=== PATIENT | female | born 1990 | race African-American/Black ===

== ENCOUNTER 2017-11-28 02:20 | Emergency (ER) | payer OTHER ==
[~2017-11-28] VITALS: Ht 175.3 cm; Wt 65.0 kg
[~2017-11-28 02:20] MED LIST: AMOXICILLIN500 MG PO; PERCOCET 5/325M1 TAB PO
[2017-11-28] MEDS ORDERED: MOTRIN800 MG PO (05:20)
[2017-11-28] MEDS ORDERED: ORPHENADRINE100 MG PO (05:20)
[2017-11-28 05:27] VITALS: BP 103/62
== END 2017-11-28 05:45 | disposition home or self-care (01) ==
LOC: ED 02:20
DX: M54.5 Low back pain (principal)

== ENCOUNTER 2018-09-02 04:48 | Emergency (ER) | payer OTHER ==
[~2018-09-02] VITALS: Ht 175.3 cm; Wt 68.1 kg
[~2018-09-02 04:48] MED LIST changes: +MOTRIN800 MG PO; +ORPHENADRINE100 MG PO
[2018-09-02] MEDS ORDERED: IBUPROFEN600 MG PO (05:02)
[2018-09-02] MEDS ORDERED: AMOXICILLIN500 MG PO (05:02)
[2018-09-02 05:10] VITALS: BP 125/77
== END 2018-09-02 05:14 | disposition home or self-care (01) ==
LOC: ED 04:48
DX: M84.48XA Pathological fracture, other site, initial encounter for fracture (principal); K08.409 Partial loss of teeth, unspecified cause, unspecified class

== ENCOUNTER 2019-03-22 | Emergency (ER) | payer OTHER ==
[~2019-03-22] MED LIST changes: +IBUPROFEN600 MG PO
[2019-03-22] MEDS ORDERED: TYLENOL500 MG PO (13:35)
== END 2019-03-22 14:34 | disposition home or self-care (01) ==
DX: M54.2 Cervicalgia (principal); Z33.1 Pregnant state, incidental

== ENCOUNTER 2019-04-10 | Emergency (ER) | payer OTHER ==
[~2019-04-10] MED LIST changes: +TYLENOL500 MG PO
[2019-04-10 13:24] LABS: HEMOGLOBIN 11.3 g/dl (12.0-16.0); IMMATURE GRANULOCYTES 0.2 % (0.0-5.0); MEAN CELL VOLUME 86.7 fL CALC (80.0-100.0); MEAN CORPUSCULAR HGB 28.8 pG CALC (26.0-32.0); MEAN CORPUSCULAR HGB CONC 33.2 g/L CALC (32.0-36.0); NEUT# 2.76 thou/uL (2.00-7.15); RED BLOOD COUNT 3.92 mill/uL (4.20-5.60); RED CELL DISTRI WIDTH 12.6 % (11.5-15.5)
[2019-04-10 13:39] LABS: ALBUMIN 4.4 g/dL (3.2-5.0); ALKALINE PHOSPHATASE 43 u/l (38-126); ANION GAP 14 (6-22 (CALC)); BILIRUBIN, TOTAL 0.5 mg/dL (0.0-1.4); BUN 10 mg/dL (7-17); BUN/CREATININE RATIO 20 (12-20 (CALC)); CARBON DIOXIDE 22 mmol/l (22-30); CHLORIDE 101 mmol/l (95-108); CREATININE 0.5 mg/dL (0.5-1.0); GFR > 60 ML/MIN (>=60 (CALC)); GFR FOR AFR.AMER. > 60 ML/MIN (>=60 (CALC)); POTASSIUM 3.8 mmol/l (3.5-5.1); SGOT/AST 23 u/l (14-36); SODIUM 134 mmol/l (137-146); TOTAL PROTEIN 7.8 g/dL (6.3-8.2)
[2019-04-10 14:20] LABS: BETA-HCG, QUANT(RESULT NUMBER) 107060 mIU/mL
[2019-04-10] MEDS ORDERED: PHENERGAN25 MG/TAB PO (15:02)
== END 2019-04-10 15:25 | disposition home or self-care (01) ==
PROVIDERS: Family Medicine
DX: K52.9 Noninfective gastroenteritis and colitis, unspecified (principal)

== ENCOUNTER 2019-05-08 15:14 | Emergency (ER) | payer OTHER ==
[~2019-05-08 15:14] MED LIST changes: +PHENERGAN25 MG/TAB PO
[2019-05-08] MEDS ORDERED: DICLEGIS1 TAB (15:26)
[2019-05-08] MEDS ORDERED: AMOXICILLIN875 MG PO (16:10)
[2019-05-08 16:15] VITALS: BP 118/73
== END 2019-05-08 16:15 | disposition home or self-care (01) ==
LOC: ED 15:14
DX: J02.9 Acute pharyngitis, unspecified (principal); R05 Cough

== ENCOUNTER 2020-07-30 09:50 | Emergency (ER) | payer OTHER ==
[~2020-07-30] VITALS: Ht 175.3 cm; Wt 72.2 kg
[~2020-07-30 09:50] MED LIST changes: +AMOXICILLIN875 MG PO; +DICLEGIS1 TAB
[2020-07-30 12:18] VITALS: BP 124/62
== END 2020-07-30 12:18 | disposition home or self-care (01) | DRG 552 ==
LOC: ED 09:50
DX: S16.1XXA Strain of muscle, fascia and tendon at neck level, initial encounter (principal); S46.911A Strain of unspecified muscle, fascia and tendon at shoulder and upper arm level, right arm, initial encounter; R07.81 Pleurodynia; V43.54XA Car driver injured in collision with van in traffic accident, initial encounter

== ENCOUNTER 2022-02-04 08:43 | Emergency (ER) | payer OTHER ==
[~2022-02-04] VITALS: Ht 175.3 cm; Wt 74.1 kg
[2022-02-04] MEDS ORDERED: CHERATUSSIN PO (09:24)
[2022-02-04] MEDS ORDERED: ZPAK PO (09:25)
[2022-02-04 09:27] VITALS: BP 116/68
== END 2022-02-04 09:36 | disposition home or self-care (01) ==
LOC: ED 08:43
DX: J06.9 Acute upper respiratory infection, unspecified (principal); Z20.822 Contact with and (suspected) exposure to COVID-19

== ENCOUNTER 2022-03-24 15:52 | Emergency (ER) | payer OTHER ==
[~2022-03-24] VITALS: Ht 175.3 cm; Wt 58.9 kg
[~2022-03-24 15:52] MED LIST changes: +CHERATUSSIN PO; +ZPAK PO
[2022-03-24 18:02] VITALS: BP 132/94
[2022-03-24 18:30] VITALS: BP 122/93
[2022-03-24 19:00] VITALS: BP 126/88
[2022-03-24 23:55] LABS: BASO% 0.6 % (0-3); EOS% 0.1 % (0-8); HEMATOCRIT 41.4 % (37.0-47.0); HEMOGLOBIN 13.3 g/dl (12.0-16.0); IMMATURE GRANULOCYTES 0.1 % (0.0-5.0); LYMPH% 24.9 % (15-41); MEAN CELL VOLUME 88.7 fL CALC (80.0-100.0); MEAN CORPUSCULAR HGB 28.5 pG CALC (26.0-32.0); MEAN CORPUSCULAR HGB CONC 32.1 g/dL CAL (32.0-36.0); MONO% 6.8 % (2-13); NEUT# 4.55 thou/uL (2.00-7.15); NEUT% 67.5 % (42-76); RED BLOOD COUNT 4.67 mill/uL (4.20-5.60); RED CELL DISTRI WIDTH 13.2 % (11.5-15.5)
[2022-03-24 23:56] LABS: URINE BILIRUBIN - DIPSTICK NEGATIVE (NEGATIVE); URINE BLOOD DIPSTICK LARGE (NEGATIVE); URINE COLOR YELLOW; URINE GLUCOSE - DIPSTICK NEGATIVE (NEGATIVE); URINE KETONE 40 mg/dL (NEGATIVE); URINE LEUK ESTERASE NEGATIVE (NEGATIVE); URINE NITRITE - DIPSTICK NEGATIVE (Negative); URINE PH 5.5 (4.5-8.0); URINE PROTEIN - DIPSTICK 30 mg/dL (NEG-TRACE); URINE SPECIFIC GRAVITY >=1.030; URINE UROBILINOGEN - DIPSTICK 0.2 E.U./dL (0.2)
[2022-03-25 00:09] LABS: BILIRUBIN, TOTAL 0.7 mg/dL (0.0-1.4); BUN 13 mg/dL (7-17); BUN/CREATININE RATIO 18 (12-20 (CALC)); CHLORIDE 103 mmol/l (95-108); CREATININE 0.7 mg/dL (0.5-1.0); GFR FOR AFR.AMER. > 60 ML/MIN (>=60 (CALC)); GFR OTHER RACES > 60 ML/MIN (>=60 (CALC)); POTASSIUM 3.6 mmol/l (3.5-5.1); SGOT/AST 31 u/l (14-36); SODIUM 139 mmol/l (137-146); TOTAL PROTEIN 8.9 g/dL (6.3-8.2)
[2022-03-25 00:10] LABS: URINE AMORPH SEDIMENT FEW hpf (NONE-FEW); URINE BACTERIA MODERATE hpf; URINE MUCUS FEW hpf (NONE-FEW); URINE SQUAMOUS EPITHELIAL CELL FEW EPI/hpf (0-FEW)
[2022-03-25 00:13] LABS: ALBUMIN 5.5 g/dL (3.2-5.0); ALKALINE PHOSPHATASE 70 u/l (38-126); ANION GAP 13 (6-22 (CALC)); CARBON DIOXIDE 27 mmol/l (22-30)
[2022-03-25] MEDS ORDERED: BACTRIM DS1 TAB PO (01:22)
[2022-03-25] MEDS ORDERED: COMBIVIR 1501 COMBO PO (01:22)
[2022-03-25 06:24] VITALS: BP 100/66
[2022-03-25 18:00] VITALS: BP 100/66
== END 2022-03-25 18:05 ==
LOC: ED 15:52
PROVIDERS: Emergency Medicine
DX: T76.21XA Adult sexual abuse, suspected, initial encounter (principal); R45.851 Suicidal ideations; N39.0 Urinary tract infection, site not specified; F19.10 Other psychoactive substance abuse, uncomplicated; Z20.822 Contact with and (suspected) exposure to COVID-19

== ENCOUNTER 2022-05-24 08:30 | Emergency (ER) | payer OTHER ==
[2022-05-24] VITALS (9 sets, daily range): BP systolic 102–117; BP diastolic 65–75
[~2022-05-24] VITALS: Ht 175.3 cm; Wt 72.0 kg
[~2022-05-24 08:30] MED LIST changes: +BACTRIM DS1 TAB PO; +COMBIVIR 1501 COMBO PO
== END 2022-05-24 11:06 | disposition home or self-care (01) ==
LOC: ED 08:30
DX: M79.645 Pain in left finger(s) (principal)

== ENCOUNTER 2022-09-16 13:45 | Emergency (ER) | payer OTHER ==
[~2022-09-16] VITALS: Ht 175.3 cm; Wt 81.6 kg
[2022-09-16] MEDS ORDERED: NAPROXEN500 MG PO (15:33)
[2022-09-16 15:48] VITALS: BP 97/59
== END 2022-09-16 15:57 | disposition home or self-care (01) | DRG 563 ==
LOC: ED 13:45
DX: S63.502A Unspecified sprain of left wrist, initial encounter (principal); V43.52XA Car driver injured in collision with other type car in traffic accident, initial encounter